=== PATIENT | female | born 1985 | race Caucasian/White ===

== ENCOUNTER 2019-02-26 10:17 | Emergency (ER) | payer OTHER ==
[~2019-02-26] VITALS: Ht 175.3 cm; Wt 59.3 kg
[2019-02-26 11:27] LABS: BASO % 0.3 % (0.0-1.0); EOS # 0.1 10^3/uL (0.0-0.50); EOS % 1.5 % (0.0-3.0); HEMATOCRIT 41.6 % (36.0-47.0); HEMOGLOBIN 13.7 g/dl (12.0-15.5); LYMPH # 1.5 10^3/uL (1.5-4.5); MEAN CORPUSCULAR HEMOGLOBIN 30.4 pg (27.0-33.0); MEAN CORPUSCULAR HGB CONC 32.9 g/dl (32.0-36.5); MEAN CORPUSCULAR VOLUME 92.4 fl (80.0-96.0); MONO # 0.4 10^3/uL (0.0-0.8); MONO % 6.4 % (0.0-5.0); NEUTROPHILS % 66.6 % (36.0-66.0); PLATELET COUNT, AUTOMATED 229 10^3/uL (150-450)
[2019-02-26 11:50] LABS: HCG, SERUM QUALITATIVE NEGATIVE (NEGATIVE)
[2019-02-26 11:52] LABS: ALT/SGPT 15 U/L (12-78); BILIRUBIN,DIRECT < 0.1 MG/DL (0.0-0.2); BILIRUBIN,TOTAL 0.3 MG/DL (0.2-1.0); BLOOD UREA NITROGEN 9 MG/DL (7-18); CARBON DIOXIDE LEVEL 27 MEQ/L (21-32); CHLORIDE LEVEL 106 MEQ/L (98-107); CREATININE FOR GFR 0.63 MG/DL (0.55-1.30); GLOMERULAR FILTRATION RATE > 60.0 (>60); GLUCOSE, FASTING 97 MG/DL (70-100); LIPASE 147 U/L (73-393); POTASSIUM SERUM 4.9 MEQ/L (3.5-5.1); SODIUM LEVEL 139 MEQ/L (136-145); TOTAL PROTEIN 7.7 GM/DL (6.4-8.2)
--- NOTE | 2019-02-26 12:36 | REP ---
Abdominal right upper quadrant ultrasound for epigastric pain and right upper quadrant pain: There is no cholelithiasis, gallbladder wall thickening or pericholecystic fluid. There is no intrahepatic or extrahepatic biliary duct dilatation. The common biliary duct measures 3.4 mm in diameter. The hepatic parenchyma is homogeneous and otherwise unremarkable. The visualized pancreatic parenchyma is unremarkable. Right kidney measures 11.0 x 3.7 x 4.2 cm and is normal size. There is no right renal calculus, hydronephrosis, solid mass or cyst. There is no right upper quadrant ascites. Impression: Essentially negative abdominal right upper quadrant ultrasound. Electronically Signed by Lorenzo Liz MD 02/26/2019 12:27 P
[2019-02-26 12:51] VITALS: BP 108/56
== END 2019-02-26 13:35 | disposition home or self-care (01) ==
LOC: M ED 10:17
DX: R10.11 Right upper quadrant pain (principal); R10.9 Unspecified abdominal pain; Z88.0 Allergy status to penicillin
CPT/HCPCS: 76705; 80048; 80076; 81001; 81002; 81025; 83690; 84703; 85025; 87086; 99284; G0463

== ENCOUNTER → 2019-02-26 | Outpatient (REF) | payer OTHER | LOC: M SFHCLERA 09:34 | PROVIDERS: ATTEND Nurse Practitioner Family | DX: R10.9 Unspecified abdominal pain (principal) ==

== ENCOUNTER 2021-03-11 19:47 | Emergency (ER) | payer OTHER ==
[~2021-03-11] VITALS: Ht 175.3 cm; Wt 59.2 kg
--- NOTE | 2021-03-11 21:05 | REPVR ---
PROCEDURE INFORMATION: Exam: US Duplex Right Lower Extremity Veins, Limited Exam date and time: 03/11/2021 8:49 PM Age: 35 years old Clinical indication: Pain; Leg, lower; Right; Additional info: Pain in calf TECHNIQUE: Imaging protocol: Real-time Duplex ultrasound of the Right Lower Extremity with 2-D carbajal scale, color Doppler flow and spectral waveform analysis with image documentation. Limited exam was focused on the right lower extremity veins. COMPARISON: No relevant prior studies available. FINDINGS: Right deep veins: Unremarkable. The common femoral, femoral, proximal profunda femoral and popliteal veins are patent without thrombus. Normal Doppler waveforms. Normal compressibility and/or augmentation response. Right superficial veins: Unremarkable. Saphenofemoral junction is patent without thrombus. Soft tissues: Unremarkable. IMPRESSION: No evidence of deep vein thrombosis. Electronically signed by: Ignacio Reyes On 03/11/2021 21:05:16 PM
[2021-03-11] MEDS ORDERED: LIDOCAINE 4% CREAM 5GM (LMX4) TOP ONE (22:40)
[2021-03-11] MEDS ORDERED: NAPROXEN 250 MG TAB PO ONE (22:40)
[2021-03-11 22:59] LABS: BASO % 0.5 % (0.0-1.0); EOS # 0.1 10^3/uL (0.0-0.5); EOS % 1.6 % (0.0-3.0); HEMATOCRIT 33.7 % (36.0-47.0); HEMOGLOBIN 10.5 g/dl (12.0-15.5); LYMPH # 2.2 10^3/uL (1.5-5.0); LYMPH % 35.7 % (24.0-44.0); MEAN CORPUSCULAR HEMOGLOBIN 25.6 pg (27.0-33.0); MEAN CORPUSCULAR HGB CONC 31.2 g/dl (32.0-36.5); MEAN CORPUSCULAR VOLUME 82.2 fl (80.0-96.0); MONO # 0.4 10^3/uL (0.0-0.8); MONO % 6.6 % (2.0-8.0); NEUTROPHILS # 3.4 10^3/uL (1.5-8.5); NEUTROPHILS % 55.4 % (36.0-66.0); PLATELET COUNT, AUTOMATED 248 10^3/uL (150-450); WHITE BLOOD COUNT 6.2 10^3/uL (4.0-10.0)
--- NOTE | 2021-03-11 23:26 | REPVR ---
PROCEDURE INFORMATION: Exam: XR Chest Exam date and time: 03/11/2021 11:19 PM Age: 35 years old Clinical indication: Other: Chest heaviness TECHNIQUE: Imaging protocol: XR of the chest. Views: 2 views. COMPARISON: No relevant prior studies available. FINDINGS: Lungs: Unremarkable. No consolidation. Pleural spaces: Unremarkable. No pleural effusion. No pneumothorax. Heart/Mediastinum: Unremarkable. No cardiomegaly. Bones/joints: Unremarkable. IMPRESSION: No acute findings. Electronically signed by: Ignacio Reyes On 03/11/2021 23:25:57 PM
[2021-03-11 23:39] LABS: CK-MB VALUE MASS < 1.0 NG/ML (<3.6); CPK CREATINE PHOSPHOKINASE 31 U/L (26-192); MB/CK RELATIVE INDEX 3.23 (< OR =4); TROPONIN I < 0.02 NG/ML (< 0.10)
[2021-03-12] MEDS ORDERED: ANEC4CRE3 TOP (00:03)
[2021-03-12] MEDS ORDERED: FERR325T3 PO (00:03)
[2021-03-12 00:15] VITALS: BP 110/60
--- NOTE | 2021-03-12 08:55 | ECGEPIP ---
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
== END 2021-03-12 00:16 | disposition home or self-care (01) ==
LOC: M ED 19:47
DX: D64.9 Anemia, unspecified (principal); R07.9 Chest pain, unspecified; M79.604 Pain in right leg; Z88.0 Allergy status to penicillin

== ENCOUNTER 2021-03-29 22:11 | Emergency (ER) | payer OTHER ==
[~2021-03-29] VITALS: Ht 175.3 cm; Wt 58.2 kg
[~2021-03-29 22:11] MED LIST: ANEC4CRE3 TOP; FERR325T3 PO
[2021-03-29] MEDS ORDERED: ESSETAB4 PO (22:29)
[2021-03-29 23:52] LABS: HEMATOCRIT 34.6 % (36.0-47.0); HEMOGLOBIN 11.1 g/dl (12.0-15.5)
[2021-03-30 03:00] VITALS: BP 100/57
== END 2021-03-30 03:11 | disposition home or self-care (01) ==
LOC: M ED 22:11
DX: F41.0 Panic disorder [episodic paroxysmal anxiety] (principal); D64.89 Other specified anemias; Z88.0 Allergy status to penicillin; Z88.8 Allergy status to other drugs, medicaments and biological substances